=== PATIENT | female | born 1960 | race Caucasian/White ===

== ENCOUNTER 2018-12-24 14:14 | Emergency (ER) | payer MEDICARE, BC, OTHER ==
[~2018-12-24] VITALS: Ht 170.2 cm; Wt 86.6 kg
[~2018-12-24 14:14] MED LIST: FOSAMAX 70 MG T70 MG PO; IBUPROFEN 800800 M1 PO; PERCOCET PO; PRINIVIL10 MG PO; PROGESTERONE100 MG PO
[2018-12-24] MEDS ORDERED: KEPPRA XR750 MG PO (14:34)
[2018-12-24] MEDS ORDERED: BUSPIRONE HCL15 MG PO (14:34)
[2018-12-24] MEDS ORDERED: LAMOTRIGINE250 MG PO (14:34)
[2018-12-24] MEDS ORDERED: CARBAMAZEPINE200 M5 PO (14:35)
[2018-12-24 15:06] LABS: HEMATOCRIT 38.6 % (37.0-47.0); HEMOGLOBIN 13.1 gm/dL (12.0-15.0); MCH 31.9 pg (26.0-34.0); MCV 93.9 fL (80.0-100.0); MPV 7.4 fl. (7.2-11.1); NUCLEATED RBCS 0 /100WBC; PLATELET COUNT* 354 thou/uL (150-400); RBC 4.12 mil/uL (4.20-5.00); RDW-CV 13.3 % (10.5-14.5); WBC 11.8 thou/uL (4.0-11.0)
[2018-12-24 15:14] LABS: CALCIUM 9.5 mg/dL (8.5-10.1); CREATININE 0.9 mg/dL (0.6-1.3); POTASSIUM 4.1 mmol/L (3.5-5.1)
[2018-12-24 15:18] LABS: TOTAL BILIRUBIN 0.2 mg/dL (<0.1-1.0); TOTAL PROTEIN 7.4 g/dL (6.4-8.2)
[2018-12-24 15:21] LABS: ABSOLUTE LYMPHOCYTES 1.3 thou/uL (0.8-5.3); ABSOLUTE MONOCYTES 0.4 thou/uL (0.0-1.2); ABSOLUTE NEUTROPHILS 10.1 thou/uL (1.6-8.1); ATYPICAL LYMPHS 1 %; PLATELET ESTIMATE ADEQUATE
[2018-12-24 16:32] VITALS: BP 147/88
--- NOTE | 2018-12-25 17:59 | EKG ---
[place] [address] ELECTROCARDIOGRAM REPORT Name: YULIA MOTT Room: [facility]#: [id number] Admission: 12/24/18 Attend Phys: Discharge: 12/24/18 Date of : 58 Report #: [id number] THIS REPORT FOR: //name// [facility] ED Test Date: 2018-12-24 Test Time: 15:02:25 Pat Name: YULIA MOTT Department: Room: Gender: F Radar Engineer: : 1960 Requested By: Bernard Eugene Order Number: [id number] MD: Breezy Garner Measurements Intervals [place] Rate: 90 P: 58 [place]: 184 QRS: 21 QRSD: 96 T: 28 QT: 348 QTc: 426 Interpretive Statements Sinus rhythm Low voltage, precordial leads Baseline wander in lead(s) I,aVL No previous ECG available for comparison Electronically Signed On 12-25-2018 17:59:35 CDT by Breezy Garner [email or web address] <ELECTRONICALLY SIGNED> By: Breezy Garner MD, [facility] 12/25/18 1759 1502 150 Breezy Garner MD, FACC /EPI
== END 2018-12-24 16:33 | disposition home or self-care (01) ==
LOC: M.ERS 14:14
PROVIDERS: Physician Assistant
DX: S01.01XA Laceration without foreign body of scalp, initial encounter (principal); R56.9 Unspecified convulsions; W22.8XXA Striking against or struck by other objects, initial encounter; Y93.89 Activity, other specified; Y92.89 Other specified places as the place of occurrence of the external cause; Y99.8 Other external cause status

== ENCOUNTER 2019-12-05 15:48 | Emergency (ER) | payer MEDICARE, BC, OTHER ==
[~2019-12-05] VITALS: Ht 172.7 cm; Wt 90.7 kg
[~2019-12-05 15:48] MED LIST changes: +BUSPIRONE HCL15 MG PO; +CARBAMAZEPINE200 M5 PO; +KEPPRA XR750 MG PO; +LAMOTRIGINE250 MG PO
[2019-12-05] MEDS ORDERED: LISINOPRIL-HCT1 EACH PO (16:07)
[2019-12-05] MEDS ORDERED: NORCO 5-325 TA1 EAC2 PO (18:15)
[2019-12-05] MEDS ORDERED: IBUPROFEN 800800 M1 PO (18:15)
[2019-12-05 18:32] VITALS: BP 167/90
== END 2019-12-05 18:33 | disposition home or self-care (01) ==
LOC: M.ERS 15:48
DX: M72.2 Plantar fascial fibromatosis (principal); Z79.899 Other long term (current) drug therapy; X58.XXXA Exposure to other specified factors, initial encounter; Y93.01 Activity, walking, marching and hiking; Y92.89 Other specified places as the place of occurrence of the external cause; Y99.8 Other external cause status